=== PATIENT | male | born 1995 | race Caucasian/White ===

== ENCOUNTER 2023-08-23 04:42 | Day surgery (SDC) | payer OTHER ==
[2023-08-20 12:08] VITALS: BMI 29.1
[2023-08-23 09:24] VITALS: TEMP 98
[2023-08-23 09:52] VITALS: BP 125/61; PULSE 77; RESP 19
== END 2023-08-23 09:58 | disposition home or self-care (01) ==
LOC: JASU-ENDO 04:42
PROVIDERS: ATTEND Internal Medicine Gastroenterology
PROC: 0DJD8ZZ Inspection of Lower Intestinal Tract, Via Natural or Artificial Opening Endoscopic (ICD-10-PCS; principal; 2023-08-23 08:45)
DX: K62.89 Other specified diseases of anus and rectum (principal); K64.4 Residual hemorrhoidal skin tags; K64.8 Other hemorrhoids